=== PATIENT | male | born 1995 | race Caucasian/White ===

== ENCOUNTER 2016-07-17 14:00 | Inpatient (IN) | payer OTHER ==
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
--- NOTE | ~2016-07-17 | PN ---
Unit #: [id number] #: [id number] Patient: KAREEN SERRATO [id number] [facility] [address] [place] [address] [id number] I MR#: [id number] NAME: KAREEN SERRATO. ROOM: P256 Age: 20 Sex: M Admission Date: 07/17/2016 : 1995 Attending Physician: Tushar Oquendo M.D. Admitting Physician: Tushar Oquendo M.D. Primary Care Physician: Casper Escudero PROGRESS NOTES DATE 07/20/2016 DISCUSSION This patient is complaining of hearing voices and being suicidal and we discussed this today, and that continues to be an issue for him. He is somewhat silly and agitated at times but when he starts talking about these issues he said that they are real. He said that he is worried that he is schizophrenic, I doubt that he is, I don't see that in his makeup. He knows that his father wants him diagnosed as schizophrenic because of the need for social security disability. He is on Desyrel 100 mg at bedtime, I reduced his Risperdal 1 mg b.i.d., and Zoloft 100 mg a day, to change medications to see if he does better particularly with controlling his anger and mood disorder when he is at home. He is agreeable to this. Dictated by... Casper Quinteros/coty TD: 07/24/2016 11:46 JOB #: [id number] [facility] PROGRESS NOTES Page 1 of 1 X Tushar Oquendo MD PROGRESS NOTE
--- NOTE | ~2016-07-17 | HP ---
Unit #: [id number] #: [id number] Patient: KAREEN SERRATO [id number] [place] [address] [id number] I MR#: [id number] NAME: KAREEN SERRATO. ROOM: P256 Age: 20 Sex: M Admission Date: 07/17/2016 : 1995 Attending Physician: Tushar Oquendo M.D. Admitting Physician: Tushar Oquendo M.D. Primary Care Physician: Nelson Jeffries M.D. HISTORY AND PHYSICAL HISTORY OF PRESENT ILLNESS Kareen is a 20 year old admitted to [address] [place] [address] with depression after verbalizing wanting to hurt himself. He has had numerous admissions to this facility. PAST MEDICAL HISTORY 1. Asthma 2. MR PAST SURGICAL HISTORY Bilateral hands ALLERGIES Geodon (tongue swelling) SOCIAL HISTORY He denies cigarettes, alcohol and illicit drug use. FAMILY HISTORY Medically noncontributory. REVIEW OF SYSTEMS CONSTITUTIONAL: No fever or chills. HEENT: Denies any sore throat, ear pain or runny nose. CARDIOVASCULAR: Denies chest pain, irregular heart rhythm or palpitations. CHEST: Denies shortness of breath or cough. No hemoptysis. GASTROINTESTINAL: Denies nausea, vomiting, diarrhea or chronic constipation. ENDOCRINE: Denies history of increased thirst or urination. No recent significant weight loss or gain. GENITOURINARY: Denies dysuria, frequency, or hematuria. SKIN: Denies any rashes. HEMATOLOGIC: Denies history of increased bleeding or bruising. MUSCULOSKELETAL: Denies any hot, swollen joints. No generalized muscle pain. NEUROLOGIC: Denies problems with vision or speech. No frequent, severe headaches. No numbness, tingling or weakness in any extremities. Denies loss of bladder or bowel control. CURRENT MEDICATIONS No orders received at the time of this dictation. Unit #: [id number] #: [id number] Patient: KAREEN SERRATO PHYSICAL EXAMINATION GENERAL: Alert, well-nourished, in no apparent distress. VITAL SIGNS: Blood pressure 122/74, heart rate 80, respirations 16, temperature 98.6. SKIN: Warm and dry without rash or lesion. HEENT: Normocephalic. TMs not viewed. Oral and nasal passages clear. Conjunctivae clear. Pupils equal, round and reactive to light and accommodation. Extraocular movements intact. NECK: Supple without lymphadenopathy or thyromegaly. HEART: Regular rate and rhythm without murmur. LUNGS: Clear. ABDOMEN: Soft, nontender. : Not done. EXTREMITIES: No evidence of cyanosis, clubbing or edema. Moves all extremities without focal deficit. NEUROLOGICAL: Grossly within normal limits. Cranial Nerves: II: Visual berman are intact. III, IV AND : Extraocular movements are intact. Pupils are equal, round and reactive to light. V: Facial sensation is grossly normal. VII: Facial movements and expression are normal. VIII: Auditory acuity grossly intact. IX, X: Uvula is midline. Phonation is normal. XI: Patient shrugs shoulders and turns head normally. XII: Tongue protrudes in the midline. Sensory and Motor Function: Sensory and motor sensation is grossly normal. Motor: moves all extremities well. Coordination: Gait is normal. Deep Tendon Reflexes: Intact. IMPRESSION Psychiatric admission RECOMMENDATIONS PSYCHIATRIC: Per psychiatrist. MEDICAL: I see no contraindications to participating in facility's activities. MEDICAL PROGNOSIS Good. MEDICAL CONDITION Stable. Dictated by... Pastora Rign P.A.-C. for Casper Coppola/siva TD: 07/18/2016 03:31 JOB #: [id number] Unit #: [id number] #: [id number] Patient: KAREEN SERRATO HISTORY AND PHYSICAL Page 1 of 1 X Pastora Ring X HISTORY AND PHYSICAL
--- NOTE | ~2016-07-17 | PN ---
Unit #: [id number] #: [id number] Patient: KAREEN SERRATO [id number] [facility] [address] [place] [address] [id number] I MR#: [id number] NAME: KAREEN SERRATO ROOM: P252 Age: 20 Sex: M Admission Date: 07/17/2016 : 1995 Attending Physician: Tushar Oquendo M.D. Admitting Physician: Tushar Oquendo M.D. Primary Care Physician: Casper Escudero PROGRESS NOTES DATE 07/27/2016 DISCUSSION This patient was seen today and discussed with the staff. He is described by the staff as being very needy and clingy, he wants things his way and he is having a difficult time with frustration tolerance and his anger. This may, in fact, have ramped up a bit since his medication has been changed or at least talking with him about this, coincident I increased the Lamictal to 25 mg b.i.d. He needs a family session where they can talk about his behavior at home which has been exemplified by his call home and his anger with his grandmother and his father. We will continue with the present treatment plan. Dictated by... Casper Quinteros/coty TD: 07/31/2016 09:15 JOB #: [id number] [facility] PROGRESS NOTES Page 1 of 1 X Tushar Oquendo MD X PROGRESS NOTE
--- NOTE | ~2016-07-17 | PN ---
Unit #: [id number] #: [id number] Patient: KAREEN SERRATO [id number] [facility] [address] [place] [address] [id number] I MR#: [id number] NAME: KAREEN SERRATO ROOM: P256 Age: 20 Sex: M Admission Date: 07/17/2016 : 1995 Attending Physician: Tushar Oquendo M.D. Admitting Physician: Tushar Ouqendo M.D. Primary Care Physician: Casper Escudero PROGRESS NOTES DATE OF SERVICE 07/23/2016 DISCUSSION The patient was seen and chart history reviewed. His case was discussed with staff. He was able to follow directions and stayed in groups without major difficulty. There were no reports of major outbursts on the unit. He continued to have periods of irritability. TREATMENT PLAN Continue current care and medication. Monitor the patient's behavioral progress in the unit setting. Towards an appropriate step-down plan. Dictated by... Eledr Garcia M.D. TDP/siva TD: 07/25/2016 04:58 JOB #: [id number] [facility] PROGRESS NOTES Page 1 of 1 X Elder Garcia MD PROGRESS NOTE
--- NOTE | ~2016-07-17 | PN ---
Unit #: [id number] #: [id number] Patient: KAREEN SERRATO [id number] [facility] [address] [place] [address] [id number] I MR#: [id number] NAME: KAREEN SERRATO ROOM: P252 Age: 20 Sex: M Admission Date: 07/17/2016 : 1995 Attending Physician: Tushar Oquendo M.D. Admitting Physician: Tushar Oquendo M.D. Primary Care Physician: Casper Escudero PROGRESS NOTES DATE 07/28/2016 DISCUSSION The patient was seen and discussed with the staff today, he is the same, he is quite dependent and needy, he is demanding, and he gets easily agitated if he doesn't get his way, he is quite entitled and he is also depressed. Medication is being changed and he has been put on Lamictal, he is on 25 mg b.i.d., Risperdal 1 mg b.i.d., and Desyrel 100 mg at bedtime, he has had some significant acting out behaviors when he is on the phone with his father and his grandmother, and this needs to be addressed before he goes home or this is not going to work, he was told but he didn't like it. Dictated by... Tushar Oquendo M.D. ELIZABET/coty TD: 08/01/2016 11:28 JOB #: [id number] [facility] PROGRESS NOTES Page 1 of 1 X Tushar Oquendo MD PROGRESS NOTE
--- NOTE | ~2016-07-17 | PN ---
Unit #: [id number] #: [id number] Patient: KAREEN SERRATO [id number] [facility] [address] [place] [address] [id number] I MR#: [id number] NAME: KAREEN SERRATO. ROOM: P252 Age: 20 Sex: M Admission Date: 07/17/2016 : 1995 Attending Physician: Tushar Oquendo M.D. Admitting Physician: Tushar Oquendo M.D. Primary Care Physician: Nelson Jeffries M.D. [facility] PROGRESS NOTES DATE 07/26/2016 DISCUSSION This patient is on Risperdal 1 mg b.i.d., Desyrel 100 mg at bedtime, Lamictal 25 mg a day. He is still struggling with what he needs in the hospital from the treatment team and his desire to be at home. He is worried that he is being cheated as he remains in the hospital. He will talk about this and I don't think that here is any real concern about this. He is still calling home and arguing with his grandmother and his father and this needs to cease before he can be discharged. We will see if Lamictal helps stabilize his mood. Dictated by... Tushar Oquendo M.D. ELIZABET/coty TD: 07/31/2016 08:35 JOB #: [id number] [facility] PROGRESS NOTES Page 1 of 1 X Tushar Oquendo MD X PROGRESS NOTE
--- NOTE | ~2016-07-17 | PN ---
Unit #: [id number] #: [id number] Patient: KAREEN SERRATO [id number] [facility] [address] [place] [address] [id number] I MR#: [id number] NAME: KAREEN SERRATO. ROOM: P252 Age: 20 Sex: M Admission Date: 07/17/2016 : 1995 Attending Physician: Tushar Oquendo M.D. Admitting Physician: Tushar Oquendo M.D. Primary Care Physician: Casper Escudero PROGRESS NOTES DATE 07/22/2016 DISCUSSION This patient seen today and discussed with staff. He presents as though he wants help, needs help and needs medication adjustment or he just wants to be out of the hospital. Today we talked about this and we talked about his needs. He said he still sees shadows but the medication adjustments haven't affected him adversely. He is getting off Zoloft. He may be started on Lamictal. He is also on Desyrel and Risperdal lower dose. Dictated by... Casper Quinteros/siva TD: 07/31/2016 01:58 JOB #: [id number] [facility] PROGRESS NOTES Page 1 of 1 X Tushar Oquendo MD PROGRESS NOTE
--- NOTE | ~2016-07-17 | PN ---
Unit #: [id number] #: [id number] Patient: KAREEN SERRATO [id number] [facility] [address] [place] [address] [id number] I MR#: [id number] NAME: KAREEN SERRATO. ROOM: P252 Age: 20 Sex: M Admission Date: 07/17/2016 : 1995 Attending Physician: Tushar Oquendo M.D. Admitting Physician: Tushar Oquendo M.D. Primary Care Physician: Nelson Jeffries M.D. [facility] PROGRESS NOTES DATE 07/21/2016 DISCUSSION This patient was admitted on 07/17/2016. This is a 20-year-old patient of mine who was admitted for suicidal threats, homicidal threats, and psychotic symptoms. He is calm some, but he still said he is suicidal. That is still an issue. He said the voices have receded some. I have lowered his Zoloft and his Risperdal. He said he has noticed no change instant. We will see if he needs consideration on the medication. Currently he is on Desyrel 100 mg at bedtime, Risperdal 1 mg b.i.d., and the Zoloft is going to be weaned off in 3 days. Dictated by... Tushar Oquendo M.D. ELIZABET/regina TD: 07/27/2016 06:36 JOB #: [id number] [facility] PROGRESS NOTES Page 1 of 1 X Tushar Oquendo MD PROGRESS NOTE
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
--- NOTE | ~2016-07-17 | PN ---
Unit #: [id number] #: [id number] Patient: KAREEN SERRATO [id number] [facility] [address] [place] [address] [id number] I MR#: [id number] NAME: KAREEN SERRATO ROOM: P256 Age: 20 Sex: M Admission Date: 07/17/2016 : 1995 Attending Physician: Tushar Oquendo M.D. Admitting Physician: Tushar Oquendo M.D. Primary Care Physician: Nelson Jeffries M.D. [facility] PROGRESS NOTES DATE 07/19/2016 DISCUSSION This patient was admitted on 07/17, he is a 20-year-old boy, who was admitted because of suicidality, aggressive behavior towards his brother and reports of psychotic symptoms. He verified all of this today. Dictated by... Casper Quinteros/coty TD: 07/24/2016 07:07 JOB #: [id number] [facility] PROGRESS NOTES Page 1 of 1 X Tushar Oquendo MD PROGRESS NOTE
--- NOTE | ~2016-07-17 | PN ---
Unit #: [id number] #: [id number] Patient: KAREEN SERRATO [id number] [facility] [address] [place] [address] [id number] I MR#: [id number] NAME: KAREEN SERRATO ROOM: P252 Age: 20 Sex: M Admission Date: 07/17/2016 : 1995 Attending Physician: Tushar Oquendo M.D. Admitting Physician: Tushar Oquendo M.D. Primary Care Physician: Casper Escudero PROGRESS NOTES DATE 07/29/2016 DISCUSSION This patient was apparently picking on his grandmother via the phone, he said that she was telling him he is stupid, he is angry about her saying that he can't go in the , et cetera. We want a meeting between him and his grandmother and his father but I am not sure it is going to happen. He has been somewhat agitated with me because I haven't discharged him home. I think if I did right now, he would just be back or there would be turmoil at home. We will continue to assess his needs. Dictated by... Tushar Oquendo M.D. ELIZABET/coty TD: 08/08/2016 12:11 JOB #: [id number] [facility] PROGRESS NOTES Page 1 of 1 X Tushar Oquendo MD X PROGRESS NOTE
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
[~2016-07-17 14:00] MED LIST: BACTRIM DS TABL1 TA2 PO; CLARITIN10 MG PO; DYNACIN50 MG PO; FAMOTIDINE PO; FLONASE16 GM; INTUNIV4 MG PO; MELATONIN3 MG PO; PRILOSEC20 M1 PO; RISPERDAL2 MG PO; TENEX1 MG PO; TRAZODONE HCL100 MG PO; ZOFRAN ODT4 MG PO; ZYPREXA PO
[2016-07-18 09:36] LABS: BASOPHIL% 0.4 % (0-2.5); EOSINOPHIL# 0.1 X10e3 (0-0.7); EOSINOPHIL% 1.3 % (0.0-7.0); HEMATOCRIT 44.1 % (38.0-50.0); HEMOGLOBIN 14.7 gm/dL (13.0-16.0); LYMPHOCYTE# 2.2 X10e3 (1.0-3.5); LYMPHOCYTE% 26.7 % (17.0-45.0); MEAN CELL VOLUME 86.7 FL (83-96); MEAN CORPUSCULAR HGB CONC 33.4 g/dL (30-36); MEAN PLATELET VOLUME 9.9 FL (6.5-11.5); MONOCYTE# 0.9 X10e3 (0-1.0); MONOCYTE% 10.7 % (3.0-12.0); NEUTROPHIL# 5.1 X10e3 (1.5-7.1); NEUTROPHIL% 60.9 % (40-75); PLATELET COUNT 222 X10e3 (140-420); RED BLOOD COUNT 5.09 X10e (3.90-5.60); RED CELL DISTRIBUTION WIDTH 13.1 % (11.0-15.5); WHITE BLOOD COUNT 8.4 X10e3 (4.0-10.5)
[2016-07-18 09:45] LABS: DIFF IND NO
[2016-07-18 09:53] LABS: ALBUMIN SERUM 4.4 g/dL (3.5-5.0); BILIRUBIN,TOTAL 1.1 mg/dL (0.2-2.0); BUN/CREATININE RATIO 14.44; CALCIUM SERUM 9.7 mg/dL (8.4-10.2); CREATININE SERUM 0.9 mg/dL (0.6-1.4); GLOM FILT RATE Estimated 123.4 mL/min (>60); POTASSIUM 4.6 mmol/L (3.5-5.1)
[2016-07-19 12:24] LABS: URINE APPEARANCE CLEAR; URINE BILIRUBIN NEG (NEG); URINE BLOOD NEG (NEG); URINE COLOR YELLOW; URINE GLUCOSE NEG (NEG); URINE KETONE NEG (NEG); URINE LEUKOCYTE ESTERASE NEG (NEG); URINE NITRATE NEG (NEG); URINE PH 5.5 (5-8); URINE PROTEIN NEG (NEG); URINE UROBILINOGEN 0.2 MG/DL (NEG)
[2016-07-19 12:42] LABS: AMPHETAMINE NEG (NEG); BARBITURATES NEG (NEG); BENZODIAZEPINES NEG (NEG); COCAINE NEG (NEG); MARIJUANA NEG (NEG); OPIATES NEG (NEG); TRICYCLIC ANTIDEPRESSANTS NEG (NEG); U METHADONE NEG (NEG)
== END 2016-07-30 17:30 | disposition home or self-care (01) | DRG 885 ==
LOC: P2L 17:29
PROVIDERS: Psychiatry & Neurology Child & Adolescent Psychiatry
DX: F39 Unspecified mood [affective] disorder (principal); E66.3 Overweight; F90.9 Attention-deficit hyperactivity disorder, unspecified type
CPT/HCPCS: 80053; 80307; 81003; 83036; 85025